=== PATIENT | male | born 1930 | race Caucasian/White ===

== ENCOUNTER 2017-04-21 09:22 | Emergency (ER) | payer MEDICARE ==
[~2017-04-21] VITALS: Ht 193 cm; Wt 123.0 kg
[2017-04-21] MEDS ORDERED: LIDOCAINE 1%, 20ML SQ ONE (10:00)
[2017-04-21] MEDS ORDERED: LIDOCAINE 1%, 20ML ONE (10:31)
[2017-04-21] MEDS ORDERED: BACITRACIN ZINC OINT 500U/GM, 0.9 GM ONE (11:31)
[2017-04-21 11:54] VITALS: BP 138/81
== END 2017-04-21 12:40 ==
LOC: ED 12:18
DX: S91.112A Laceration without foreign body of left great toe without damage to nail, initial encounter (principal); S00.93XA Contusion of unspecified part of head, initial encounter; Z87.891 Personal history of nicotine dependence; W01.0XXA Fall on same level from slipping, tripping and stumbling without subsequent striking against object, initial encounter; Y93.89 Activity, other specified; Y92.009 Unspecified place in unspecified non-institutional (private) residence as the place of occurrence of the external cause; Y99.9 Unspecified external cause status
CPT/HCPCS: 12002; 70450; 72125; 93005; 99284